=== PATIENT | male | born 1945 | race Caucasian/White ===

== ENCOUNTER 2021-09-04 07:42 | Outpatient (RCR) | payer MEDICARE, SELFPAY | END 2021-10-21 15:10 | disposition home or self-care (01) | LOC: HO.WCC 07:42 | PROVIDERS: PCP Internal Medicine; Visit Provider Physician Assistant | DX: S81.812A Laceration without foreign body, left lower leg, initial encounter (principal); I87.2 Venous insufficiency (chronic) (peripheral); Z79.899 Other long term (current) drug therapy | CPT/HCPCS: 11042; 15271; 15275; 99212; Q4187 ==